=== PATIENT | female | born 1945 | race Caucasian/White ===

== ENCOUNTER 2018-10-08 20:49 | Emergency (ER) | payer MEDICARE, OTHER ==
[~2018-10-08] VITALS: Ht 162.6 cm; Wt 129.3 kg
[2018-10-08 21:08] LABS: URINE BILIRUBIN NEGATIVE (Negative); URINE BLOOD 1+ (Negative); URINE CLARITY CLEAR; URINE COLOR YELLOW; URINE GLUCOSE-RANDOM NEGATIVE (Negative); URINE KETONES NEGATIVE (Negative); URINE LEUKOCYTES-REFLEX NEGATIVE (Negative); URINE NITRITE-REFLEX NEGATIVE (Negative); URINE PROTEIN NEGATIVE (Negative); URINE SPECIFIC GRAVITY 1.025 (1.005-1.030); URINE UROBILINOGEN 0.2 E.U./dl (0.2-1.0)
[2018-10-08] MEDS ORDERED: HYDROCHLOROTHIAZIDE (21:11)
[2018-10-08] MEDS ORDERED: LABETALOL (21:12)
[2018-10-08] MEDS ORDERED: LISINOPRIL (21:12)
[2018-10-08] MEDS ORDERED: GLIPIZIDE (21:12)
[2018-10-08] MEDS ORDERED: METFORMIN (21:13)
[2018-10-08 21:14] LABS: MUCUS None Seen strn/LPF (None Seen); SQUAMOUS >10 Many /LPF (0-3)
[2018-10-08] MEDS ORDERED: AMOXICILLI125 MG/51 (21:14)
[2018-10-08] MEDS ORDERED: BENZONATATE (21:14)
[2018-10-08] MEDS ORDERED: ACTOS (21:14)
[2018-10-08 21:15] LABS: HYALINE CASTS 0-3 Few /LPF (None Seen)
[2018-10-08 21:16] LABS: ABSOLUTE LYMPHOCYTES 1.2 thou/uL (0.8-5.3); BASOPHILS 0.1 %; EOSINOPHILS 0.1 %; HEMATOCRIT 35.1 % (37.0-47.0); HEMOGLOBIN 12.1 gm/dL (12.0-15.0); LYMPHOCYTES 14.2 %; MCH 28.8 pg (26.0-34.0); MCHC 34.4 g/dL (28.0-37.0); MCV 83.8 fL (80.0-100.0); MONOCYTES 11.8 %; MPV 7.8 fl. (7.2-11.1); NUCLEATED RBCS 0 /100WBC; PLATELET COUNT* 188 thou/uL (150-400); POLYS 73.8 %; RBC 4.19 mil/uL (4.20-5.00); RDW-CV 14.8 % (10.5-14.5); WBC 8.1 thou/uL (4.0-11.0)
[2018-10-08 21:16] LABS: CRYSTALS None Seen /LPF (None Seen); URINE RBC 0-2 Rare /HPF (0-2); URINE WBC-REFLEX 6-15 Few /HPF (0-5)
[2018-10-08 21:22] LABS: BACTERIA-REFLEX 1-9 Few /HPF (None Seen); WBC CLUMPS Few (None Seen)
[2018-10-08 21:34] LABS: ALBUMIN 3.1 g/dL (3.4-5.0); ALKALINE PHOSPHATASE 78 U/L (46-116); ANION GAP 4 mmol/L (7-16); BUN 15 mg/dL (7-18); CALCIUM 8.2 mg/dL (8.5-10.1); CHLORIDE 96 mmol/L (98-107); CO2 30 mmol/L (21-32); GLUCOSE 104 mg/dL (70-99); NT-PRO BRAIN NAT PEPTIDE 379 pg/mL (<300); POTASSIUM 3.5 mmol/L (3.5-5.1); SGOT 35 U/L (15-37); SGPT 30 U/L (30-65); SODIUM 130 mmol/L (136-145); TOTAL BILIRUBIN 0.7 mg/dL (<0.1-1.0); TOTAL PROTEIN 7.2 g/dL (6.4-8.2); TROPONIN-I LEVEL <0.06 ng/mL (<0.06)
[2018-10-08] MEDS ORDERED: KEFLEX500 M1 PO (23:50)
[2018-10-09 00:09] LABS: ANION GAP 3 mmol/L (7-16); BUN 16 mg/dL (7-18); CHLORIDE 99 mmol/L (98-107); CO2 29 mmol/L (21-32); GLUCOSE 154 mg/dL (70-99); SODIUM 131 mmol/L (136-145); TROPONIN-I LEVEL <0.06 ng/mL (<0.06)
[2018-10-09 00:13] LABS: POTASSIUM 4.5 mmol/L (3.5-5.1)
--- NOTE | 2018-10-09 17:08 | EKG ---
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 : 1945 Requested By: Anna Cotton Order Number: [id number] MD: Mitch Malcolm Measurements Intervals [place] Rate: 70 P: -20 HI: 57 QRS: -16 QRSD: 87 T: -6 QT: 417 QTc: 450 Interpretive Statements Sinus rhythm Short HI interval Inferior infarct, 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
== END 2018-10-09 00:40 | disposition home or self-care (01) ==
LOC: M.ERS 20:49
PROVIDERS: Physician Assistant
DX: E11.649 Type 2 diabetes mellitus with hypoglycemia without coma (principal); N39.0 Urinary tract infection, site not specified; Z88.7 Allergy status to serum and vaccine